=== PATIENT | male | born 1950 | race Caucasian/White ===

== ENCOUNTER 2023-09-01 14:18 | Outpatient (AMB) | payer MEDICARE, SELFPAY ==
--- NOTE | 2023-09-01 14:56 | AM.OFFWIN_ITS ---
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 Patient states he has had a lump present on his back with past several years, which has never been painful. He states he started to develop pain and erythema of the area several days ago. Denies any fevers or chills. He is otherwise feeling well. 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 [facility] Social History Patient Tobacco Use Status: Never used Tobacco Review of Systems Const All systems reviewed & are unremarkable except as noted in HPI and below Reports no additional complaints Eyes Reports no additional complaints ENT Reports no additional complaints Card Reports no additional complaints Resp Reports no additional complaints GI Reports no additional complaints Reports no additional complaints Musc Reports no additional complaints Skin/Breast Reports system reviewed and no additional complaints, except as documented Neuro Reports no additional complaints Psych Reports no additional complaints Endo Reports no additional complaints Kurt/Lymph Reports no additional complaints Aller/Immun Reports no additional complaints Physical Exam Vital Signs: Last Vital Signs Pulse 73 09/01/23 14:59 BP 124/78 09/01/23 14:59 Pulse Ox 98 09/01/23 14:59 Oxygen Delivery Method Room Air 09/01/23 14:59 BMI result Body Mass Index 35.1 Const Other: Vital signs reviewed. Constitutional: Non-toxic appearing. No acute distress. Well-developed and well-nourished. HEENT: Normocephalic and atraumatic. Skin: There is an infected sebaceous cyst on his left mid back with overlying erythema but no abscess formation at this point. Neck: Full and painless range of motion. No cervical lymphadenopathy. Cardio: Regular rate. No lower extremity edema. No JVD. Pulmonary: No respiratory distress. No accessory muscle usage. Gastrointestinal: Soft, nontender, and nondistended in all 4 quadrants. Musculoskeletal: Normal range of motion in joints throughout the body. No deformity or other signs of injury. Neuro: Alert and oriented x4. Cranial nerves 2-12 grossly intact. No focal deficits appreciated. Psych: Normal mood and affect. Assessment & Plan Assessment & Plan (1) Infected sebaceous cyst: Code(s): L72.3 - Sebaceous cyst; L08.9 - Local infection of the skin and subcutaneous tissue, unspecified Plan: This is a 72-year-old male who presented to the walk-in clinic complaining of a painful bump on his back. History and physical most consistent with an infected sebaceous cyst. Patient was given a prescription for p.o. trimethoprim/sulfamethoxazole 800/160 mg twice daily times 10 days. He was encouraged to start utilizing warm compresses multiple times a day. Patient can continue utilizing p.o. acetaminophen 650 mg every 6 hours as needed for pain. Patient was encouraged to proceed to the emergency room or to follow-up here if he were to develop fever/chills, nausea/vomiting, or worsening erythema. Patient and his verbalized her understanding and they are in agreement with the plan. Medications: New sulfamethoxazole-trimethoprim 800-160 mg 1 tab PO BID 20 tabs 0RF Coding Level of Care Code New Pt Level 3 (81028) Diagnoses Infected sebaceous cyst L72.3; L08.9
[2023-09-01 14:59] VITALS: BP 124/78; PULSE 73; O2SAT 98; BMI 35.1
== END 2023-09-01 16:09 | disposition home or self-care (01) ==
PROVIDERS: PCP Physician Assistant Medical; Visit Provider Physician Assistant Medical
DX: L72.3 Sebaceous cyst (principal); L08.9 Local infection of the skin and subcutaneous tissue, unspecified
CPT/HCPCS: 99203